=== PATIENT | male | born 1955 | race Two or more races ===

== ENCOUNTER → 2017-02-09 | Emergency (ER) | payer OTHER ==
[~2017-02-09] MED LIST: ACETAMINOPHEN 325 MG TABLET (FP) ONE; ACETAMINOPHEN 325 MG TABLET (FP) PO ONE; ONDANSETRON 4 MG/2 ML VIAL IVPUSH ONE; ONDANSETRON 4 MG/2 ML VIAL ONE; PANTOPRAZOLE SODIUM 100 ML IVPB ONE; PANTOPRAZOLE SODIUM 40 MG in SODIUM CHLORIDE 100 ML IVPB ONE; SODIUM CHLORIDE 1,000 ML IV STA
[2017-02-09 13:15] VITALS: BMI 27.4
--- NOTE | 2017-02-09 14:54 | PDOC ---
History of Present Illness - General Chief Complaint: Lightheaded Stated Complaint: Lightheaded Time Seen by Provider: 02/09/17 13:19 History Source: Patient Exam Limitations: No Limitations - History of Present Illness Initial Comments: 02/09/17 14:28 61-year-old male presents to the ED with complaints of epigastric burning that radiates to his mid sternum and throat causing him to feel flushed and dizzy. Patient states had endoscopy done by Dr. Andersen a few years ago and is due for repeat on March 02 secondary to symptoms above. Patient also states is under the care of Dr. Gomez secondary to questionable small aneurysm but denies headache presently, visual changes, neck pain, or weakness. Patient denies fever , chills presently right upper quadrant pain, urinary complaints or bowel complaints. Patient states has not taken any medication for the above and decided come to the ER. Patient denies weight change, recent travel, recent illness. Timing/Duration: intermittent Severity: moderate Associated Symptoms: reports: other Past History - Travel Traveled outside of the country in the last 30 days: No Close contact w/someone who was outside of country & ill: No - Past Medical History Allergies/Adverse Reactions: Allergies Allergy/AdvReac Type Severity Reaction Status Date / Time No Known Drug Allergies Allergy Verified 02/09/17 13:06 Home Medications: Ambulatory Orders NK [No Known Home Medication] 02/09/17 Anemia: No Asthma: No Cancer: No Cardiac Disorders: No CVA: No COPD: No CHF: No Dementia: No Diabetes: No GI Disorders: No Disorders: No HTN: No Hypercholesterolemia: No Liver Disease: No Seizures: No Thyroid Disease: No - Surgical History Abdominal Surgery: No Appendectomy: No Cardiac Surgery: No Cholecystectomy: No Lung Surgery: No Neurologic Surgery: No Orthopedic Surgery: Yes (LEFT KNEE ARTHROSCOPY) - Psycho/Social/Smoking Cessation Hx Anxiety: No Suicidal Ideation: No Smoking History: Never smoked Have you smoked in the past 12 months: No Hx Alcohol Use: No Drug/Substance Use Hx: No Substance Use Type: None Hx Substance Use Treatment: No Patient Lives Alone: No Lives with/in: spouse/SO Review of Systems - Review of Systems Able to Perform ROS?: No Is the patient limited Georgian proficient: No Constitutional: No: Symptoms Reported HEENTM: No: Symptoms Reported Respiratory: No: Symptoms reported Cardiac (ROS): Yes: Lightheadedness ABD/GI: Yes: Indigestion : No: Symptoms Reported Musculoskeletal: No: Symptoms Reported Integumentary: No: Symptoms Reported Neurological: Yes: Dizziness. No: Headache Endocrine: No: Symptoms Reported Hematologic/Lymphatic: No: Symptoms Reported *Physical Exam - Vital Signs Last Vital Signs Temp Pulse Resp BP Pulse Ox 98.2 F 69 20 138/87 99 02/09/17 13:03 02/09/17 13:03 02/09/17 13:03 02/09/17 13:03 02/09/17 13:03 - Physical Exam General Appearance: Yes: Nourished, Appropriately Dressed. No: Apparent Distress HEENT: positive: EOMI, MONE. negative: Pale Conjunctivae Neck: positive: Supple Respiratory/Chest: positive: Lungs Clear, Normal Breath Sounds. negative: Respiratory Distress, Accessory Muscle Use Cardiovascular: positive: Regular Rhythm, Regular Rate. negative: Murmur Gastrointestinal/Abdominal: positive: Soft. negative: Tenderness Extremity: positive: Normal Capillary Refill. negative: Pedal Edema Integumentary: positive: Normal Color, Warm, Moist Neurologic: positive: Motor Strength 5/5 (ambulatory) ED Treatment Course - LABORATORY CBC & Chemistry Diagram: 02/09/17 13:40 02/09/17 13:40 - RADIOLOGY Radiology Studies Ordered: Category Date Time Status CHEST PA & LAT [RAD] Stat Radiology 02/09/17 14:06 Ordered Medical Decision Making - Medical Decision Making 02/09/17 14:04 Patient with complaints of epigastric burning that radiates to his chest causing to feel dizzy and hot. Patient states is pending a repeat endoscopy since he has not had one for numerous years by Dr. Molina on March 02. Patient also states had a recent MRI done by Dr. Gomez that he is following up next week for the results of. Patient has no other complaints at this time. Patient with likely GERD and will order CBC, comp, lipase, urinalysis, Zofran, Protonix and IV fluids. 02/09/17 17:48 Laboratory Tests 02/09/17 02/09/17 02/09/17 13:40 13:40 13:40 WBC 6.9 Hgb 13.4 Hct 40.3 Plt Count 282 Neutrophils % 77.2 Sodium 139 Potassium 4.1 Chloride 105 Carbon Dioxide 26 Anion Gap 8 BUN 14 Creatinine 0.8 Random Glucose 111 H AST 16 ALT 25 Creatine Kinase Troponin I Lipase 153 Urine Ketones Negative Ur Leukocyte Esterase Negative 02/09/17 16:36 WBC Hgb Hct Plt Count Neutrophils % Sodium Potassium Chloride Carbon Dioxide Anion Gap BUN Creatinine Random Glucose AST ALT Creatine Kinase 105 Troponin I < 0.02 Lipase Urine Ketones Ur Leukocyte Esterase Chest x-ray negative for acute findings. Patient given Tylenol since he states started to develop a headache that he's had intermittently for the past year. Patient will be discharged home with Protonix since he states the abdominal discomfort has resolved *DC/Admit/Observation/Transfer Diagnosis at time of Disposition: Gastroesophageal reflux disease Qualifiers: Esophagitis presence: esophagitis presence not specified Qualified Code(s): K21.9 - Gastro-esophageal reflux disease without esophagitis - Discharge Dispostion Disposition: HOME Condition at time of disposition: Improved - Referrals Referrals: Dash Garcia MD [Primary Care Provider] - Geraldo Molina MD [Staff Physician] - Yang Gomez MD [Staff Physician] - - Patient Instructions Printed Discharge Instructions: DI for Gastroesophageal Reflux Disease (GERD) Additional Instructions: At this time your blood work shows no acute findings. The EKG and chest x-ray were negative. I do recommend you follow up with Dr. Gomez to review your MRI results and management. Please also keep your appointment with Dr. Molina as scheduled
[2017-02-09 15:09] LABS: EOSINOPHIL 0.2 % (0-4.5); MCH 28.6 pg (25.7-33.7); MCHC 33.4 g/dl (32.0-35.9); MEAN CELL VOLUME 85.6 fl (80-96); MEAN PLT VOLUME 7.9 fl (7.5-11.1); NEUTROPHILS 77.2 % (42.8-82.8); PLATELET COUNT 282 K/MM3 (134-434); RDW 14.1 % (11.9-15.9); WHITE BLOOD COUNT 6.9 K/mm3 (4.0-10.0)
[2017-02-09 15:13] LABS: URINE APPEARANCE CLEAR; URINE BILIRUBIN NEGATIVE (NEGATIVE); URINE BLOOD NEGATIVE (NEGATIVE); URINE COLOR COLORLESS; URINE GLUCOSE (UA) NEGATIVE (NEGATIVE); URINE KETONE NEGATIVE (NEGATIVE); URINE LEUK ESTERASE NEGATIVE (NEGATIVE); URINE NITRITE NEGATIVE (NEGATIVE); URINE PROTEIN NEGATIVE (NEGATIVE); URINE UROBILINOGEN NEGATIVE E.U./dl (0.2-1.0)
[2017-02-09 15:39] LABS: ANION GAP 8 (8-16); BILIRUBIN,TOTAL 0.9 mg/dL (0.2-1.0); CALCIUM 9.2 mg/dL (8.5-10.1); CO2 26 mmol/L (21-32); CREATININE 0.8 mg/dL (0.7-1.3); GLUCOSE,RANDOM 111 mg/dL (74-106); SGPT/ALT 25 U/L (12-78)
[2017-02-09 15:43] LABS: ALK PHOS 80 U/L (45-117); TOT PROT 7.4 g/dl (6.4-8.2)
[2017-02-09 15:45] LABS: SGOT/AST 16 U/L (15-37)
[2017-02-09 16:26] VITALS: BP 118/66; PULSE 62; TEMP 98.1
[2017-02-09 17:14] LABS: TROPONIN I < 0.02 ng/ml (0.00-0.05)
--- NOTE | 2017-02-09 17:14 | PDOC ---
*Physical Exam - Vital Signs Last Vital Signs Temp Pulse Resp BP Pulse Ox 98.1 F 62 16 118/66 100 02/09/17 16:24 02/09/17 16:24 02/09/17 16:24 02/09/17 16:24 02/09/17 16:24 Heart Score/ECG Review #1 02/09/17 17:14 NSR 67, no std/manny, T wave flat aVL, normal axis, normal intervals, QTC 452 msec ED Treatment Course - LABORATORY CBC & Chemistry Diagram: 02/09/17 13:40 02/09/17 13:40 - ADDITIONAL ORDERS Additional order review: Laboratory Results 02/09/17 02/09/17 13:40 13:40 Sodium 139 Potassium 4.1 Chloride 105 Carbon Dioxide 26 Anion Gap 8 BUN 14 Creatinine 0.8 Creat Clearance w eGFR > 60 Random Glucose 111 H Calcium 9.2 Total Bilirubin 0.9 AST 16 ALT 25 Alkaline Phosphatase 80 Total Protein 7.4 Albumin 4.0 Lipase 153 Urine Color Colorless Urine Appearance Clear Urine pH 6.0 Urine Protein Negative Urine Glucose (UA) Negative Urine Ketones Negative Urine Blood Negative Urine Nitrite Negative Urine Bilirubin Negative Urine Urobilinogen Negative Ur Leukocyte Esterase Negative 02/09/17 13:40 RBC 4.70 MCV 85.6 MCHC 33.4 RDW 14.1 MPV 7.9 Neutrophils % 77.2 Lymphocytes % 16.5 Monocytes % 5.1 Eosinophils % 0.2 Basophils % 1.0 - Medications Given in the ED: ED Medications Discontinued Medications Generic Name Dose Route Start Last Admin Trade Name Freq PRN Reason Stop Dose Admin Pantoprazole Sodium 40 mg/ 100 mls @ 200 mls/hr 02/09/17 14:05 02/09/17 14:50 Sodium Chloride IVPB 02/09/17 14:34 200 mls/hr ONCE ONE Administration Sodium Chloride 1,000 mls @ 1,000 mls/hr 02/09/17 14:56 02/09/17 15:00 Normal Saline - IV 02/09/17 15:55 1,000 mls/hr ASDIR STA Administration Ondansetron HCl 4 mg 02/09/17 14:05 02/09/17 14:50 Zofran Injection IVPUSH 02/09/17 14:06 4 mg ONCE ONE Administration Medical Decision Making - Medical Decision Making 02/09/17 17:13 Case discussed. Pt interviewed by me as well. Plan as per DISTRICT OR DISTRICT OFFICE DIRECTOR. *DC/Admit/Observation/Transfer Diagnosis at time of Disposition: Acid reflux - Discharge Dispostion Disposition: HOME Condition at time of disposition: Improved - Prescriptions Prescriptions: Pantoprazole Sodium [Protonix] 40 mg PO DAILY #30 tablet.dr - Referrals Referrals: Yang Gomez MD [Staff Physician] - Geraldo Molina MD [Staff Physician] - Dash Garcia MD [Primary Care Provider] - - Patient Instructions Printed Discharge Instructions: DI for Gastroesophageal Reflux Disease (GERD) Additional Instructions: At this time your blood work shows no acute findings. The EKG and chest x-ray were negative. I do recommend you follow up with Dr. Gomez to review your MRI results and management. Please also keep your appointment with Dr. Molina as scheduled
--- NOTE | 2017-02-10 12:26 | EKG ---
Test Reason : Blood Pressure : / mmHG Vent. Rate : 067 BPM Atrial Rate : 067 BPM P-R Int : 150 ms QRS Dur : 090 ms QT Int : 428 ms P-R-T Axes : 071 039 060 degrees QTc Int : 452 ms NORMAL SINUS RHYTHM NORMAL ECG NO PREVIOUS ECGS AVAILABLE Confirmed by KACEY GOODMAN MD ([id number]) on 02/10/2017 12:26:24 PM Referred By: Confirmed By:KACEY GOODMAN MD
== END | disposition home or self-care (01) ==
LOC: JER 13:01
PROC: 3E0337Z Introduction of Electrolytic and Water Balance Substance into Peripheral Vein, Percutaneous Approach (ICD-10-PCS; principal; 2017-02-09)
PROC: 3E033GC Introduction of Other Therapeutic Substance into Peripheral Vein, Percutaneous Approach (ICD-10-PCS; 2017-02-09)
PROC: 3E033GC Introduction of Other Therapeutic Substance into Peripheral Vein, Percutaneous Approach (ICD-10-PCS; 2017-02-09)
DX: K21.9 Gastro-esophageal reflux disease without esophagitis (principal)
CPT/HCPCS: 36415; 71020-TC; 80053; 81003; 82550; 83690; 84484; 85025; 93005; 93010; 99284-25